=== PATIENT | male | born 1960 | race Caucasian/White ===

== ENCOUNTER 2017-03-02 14:02 | Emergency (ER) | payer SELFPAY ==
[~2017-03-02] VITALS: Ht 174 cm; Wt 121.5 kg
[2017-03-02 14:05] VITALS: TEMP 37; Ht 174 cm; Wt 121.5 kg
[2017-03-02] MEDS ORDERED: GI COCKTAIL PO STA (14:20)
[2017-03-02] MEDS ORDERED: ASPIRIN 81 MG CHEW PO STA (14:20)
[2017-03-02] MEDS ORDERED: LIDOCAINE HCL 2% VISC SOLN 20 ML UDC ONE (14:26)
[2017-03-02] MEDS ORDERED: ALUMINUM/MAGNESIUM SUSP 30 ML UDC ONE (14:27)
[2017-03-02 14:32] VITALS: O2SAT 95
--- NOTE | 2017-03-02 14:32 | EMERGENCY ROOM VISIT NOTE ---
History Report prepared by Madan: Jason San Under the Supervision of: Dr. Evert Diaz M.D. First contact with patient: 14:14 Chief Complaint: CHEST PAIN Stated Complaint: CHEST PAIN Nursing Triage Summary: Pt c/o chest pain at 1130 this am, took tums, mid chest tightness. Denies SOB, diaphoresis, nausea. C/O some diarrhea. History of Present Illness The patient is a 57 year old male who presents to the Emergency Room with complaints of improving centralized chest pain beginning three hours ago. The patient rates his current pain as a 5/10 in severity and describes it as a feeling of "pressure". He states that he was sitting when his pain began. He took Tums for his symptoms, but saw no relief. The patient also complains of diarrhea. He states that he has had a cold recently and has felt slightly short of breath. He has a history of borderline diabetes. The patient's symptoms are not worsened with exertion. He denies diaphoresis, nausea, or vomiting. He notes that he has been very stressed recently. The patient has a history of GERD , but states that his pain was worse than any reflux-associated pain he has had. He is on baby aspirin daily, but states that he often forgets to take it. Source of History: patient Onset: Three hours ago Position: chest (centralized) Symptom Intensity: 5/10 Quality: pressure Timing: other (improving) Associated Symptoms: + SOB, + diarrhea, No diaphoresis, No nausea, No vomiting Review of Systems See HPI for pertinent positives & negatives. A total of 10 systems reviewed and were otherwise negative. Past Medical & Surgical Medical Problems: (1) Borderline diabetes Family History No pertinent family history stated. Social History Smoking Status: Current Every Day Smoker Occupation Status: employed Current/Historical Medications Scheduled Aspirin (Aspirin Chewable), 81 MG PO DAILY Pantoprazole (Protonix), 20 MG PO DAILY Ranitidine (Zantac), 150 MG PO BID Miscellaneous Medications Fish Oil ([place]-3), 1 CAP PO Allergies Coded Allergies: No Known Allergies (Unverified , 03/02/17) Physical Exam Vital Signs Date Time Temp Pulse Resp B/P (MAP) Pulse Ox O2 Delivery O2 Flow Rate FiO2 03/02/17 17:27 77 23 154/87 97 Room Air 03/02/17 16:00 76 24 144/93 95 Room Air 03/02/17 14:32 95 Room Air 03/02/17 14:23 96 03/02/17 14:09 96 Room Air 03/02/17 14:05 37.0 86 18 170/129 97 Nasal Cannula Physical Exam GENERAL: Patient is in no acute distress. HEENT: No acute trauma, normocephalic atraumatic, mucous membranes moist, no nasal congestion, no scleral icterus. NECK: No stridor, no adenopathy, no meningismus, trachea is midline. LUNGS: Clear to auscultation bilaterally, no wheeze, no rhonchi, breath sounds equal. HEART: Without murmurs gallops or rubs, regular rate and rhythm. ABDOMEN: Soft, nontender, bowel sounds positive, no hernias, no peritonitis. EXTREMITIES: No cyanosis or edema, full range of motion of all the joints without pain or difficulty, no signs for acute trauma. NEUROLOGIC: Oriented x 3, no acute motor or sensory deficits, no focal weakness. SKIN: No rash, no jaundice, no diaphoresis. Medical Decision & Procedures ER Provider Diagnostic Interpretation: X-ray results as stated below per interpretation by me and the radiologist: CHEST ONE VIEW PORTABLE FINDINGS: The heart is mildly enlarged. There is no focal pulmonary consolidation. There is no overt failure. There are no pleural effusions. Slight interstitial prominence, is likely accentuated by the patient's large body habitus.[ IMPRESSION: No active disease in the chest. Electronically signed by: Wolf Robins M.D. 03/02/2017 2:50 PM Laboratory Results 03/02/17 14:27 03/02/17 14:27 Test 03/02/17 14:27 03/02/17 16:19 Red Blood Count 4.93 M/uL (4.7-6.1) Mean Corpuscular Volume 89.2 fL (80-100) Mean Corpuscular Hemoglobin 32.0 pg (25-34) Mean Corpuscular Hemoglobin Concent 35.9 g/dl (32-36) RDW Standard Deviation 44.9 fL (36.4-46.3) RDW Coefficient of Variation 13.7 % (11.5-14.5) Mean Platelet Volume 10.9 fL (7.4-10.4) Prothrombin Time 9.6 SECONDS (9.0-12.0) Prothromb Time International Ratio 0.9 (0.9-1.1) Activated Partial Thromboplast Time 26.0 SECONDS (21.0-31.0) Partial Thromboplastin Ratio 1.0 Anion Gap 8.0 mmol/L (3-11) Est Creatinine Clear Calc Drug Dose 124.0 ml/min Estimated GFR () 112.4 Estimated GFR (Non- 97.0 BUN/Creatinine Ratio 21.1 (10-20) Calcium Level 9.2 mg/dl (8.5-10.1) Total Bilirubin 0.3 mg/dl (0.2-1) Aspartate Amino Transf (AST/SGOT) 31 U/L (15-37) Alanine Aminotransferase (ALT/SGPT) 60 U/L (12-78) Alkaline Phosphatase 127 U/L (45-117) Total Protein 8.0 gm/dl (6.4-8.2) Albumin 3.5 gm/dl (3.4-5.0) Globulin 4.5 gm/dl (2.5-4.0) Albumin/Globulin Ratio 0.8 (0.9-2) Lipase 109 U/L (73-393) Troponin I < 0.015 ng/ml (0-0.045) Laboratory results reviewed by me. Medications Administered Medications (Trade) Dose Ordered Sig/Ruby Route Start Time Stop Time Status Last Admin Dose Admin Aspirin (Aspirin Chew) 324 mg NOW STAT PO 03/02/17 14:20 03/02/17 14:23 DC 03/02/17 14:28 324 MG Lidocaine HCl (Viscous Lidocaine 2% Soln) 20 ml STK-MED ONCE .ROUTE 03/02/17 14:26 03/02/17 14:27 DC 03/02/17 14:29 10 ML Al Hydroxide/Mg Hydroxide (Maalox Susp) 30 ml STK-MED ONCE .ROUTE 03/02/17 14:27 03/02/17 14:28 DC 03/02/17 14:29 30 ML Ranitidine HCl (zANTac TAB) 150 mg NOW ONCE PO 03/02/17 15:30 03/02/17 15:31 DC 03/02/17 15:59 150 MG Pantoprazole Sodium (Protonix Tab) 40 mg NOW STAT PO 03/02/17 15:26 03/02/17 15:28 DC 03/02/17 15:59 40 MG ECG Indication: chest pain Rate (beats per minute): 80 Rhythm: normal sinus Findings: no acute ischemic change, no ectopy ED Course 1416: The patient was evaluated in room C7. A complete history and physical exam was performed. 1420: Ordered Aspirin Chew 324 mg PO, GI Cocktail 24 mL PO. 1526: Ordered Protonix Tab 40 mg PO. 1530: I reassessed the patient. He feels much better. Ordered Zantac Tab 150 mg PO. 1720: Reevaluated the patient. Discussed results and discharge instructions: he verbalized understanding and agreement. The patient is ready for discharge. Medical Decision The patient is a 57 year old male who presents to the ED with complaints of chest pain. Differential diagnoses considered include reflux, pneumonia, bronchitis, pancreatitis, gastritis, ulcer, angina, and PA. There is no leukocytosis or concerning anemia. No significant electrolyte abnormality, kidney failure or hepatitis. There is no pancreatitis. No coagulopathy. Chest x-ray does not show pneumonia, mediastinal widening or pneumothorax. EKG shows a normal sinus rhythm, no acute ischemia. Cardiac enzyme testing 2 is not consistent with acute cardiac injury. The patient has a history of reflux. He complained of discomfort in the midchest. He did receive a GI cocktail, he had marked relief with this medication. He was given oral aspirin, oral Protonix and oral Zantac. He is resting comfortably. The patient has a negative cardiac workup. His symptoms have been noted at rest , they have not been exertional. He has minimal cardiac risk factors. I do think reflux is likely his diagnosis. He is being discharged on Zantac and Protonix. If he has any exertional symptoms or worsening symptoms, he will return. Blood pressure here was somewhat elevated, he will follow with his doctor, he is anxious and believes that this is situational hypertension. Medication Reconcilliation Current Medication List: was personally reviewed by me Blood Pressure Screening Patient's blood pressure: Elevated blood pressure Blood pressure disposition: Referred to PCP Impression Primary Impression: Precordial chest pain Scribe Attestation The scribe's documentation has been prepared under my direction and personally reviewed by me in its entirety. I confirm that the note above accurately reflects all work, treatment, procedures, and medical decision making performed by me. Departure Information Dispostion Home / Self-Care Prescriptions Pantoprazole (Protonix) 20 Mg Tab 20 MG PO DAILY, #30 TAB Prov: Evert Diaz M.D. 03/02/17 Ranitidine (Zantac) 150 Mg Tab 150 MG PO BID for 14 Days, #28 TAB Prov: Evert Diaz M.D. 03/02/17 Referrals No Doctor, Assigned (PCP) Forms Call Back Authorization, HOME CARE DOCUMENTATION FORM, IMPORTANT VISIT INFORMATION Patient Instructions My [facility] Additional Instructions zantac 2x per day for 2 weeks protonix daily for 1 month follow with cathi ayon for a recheck this week return for worsening pain or any exertional chest pain or shortness of breath heart testing today was ok, chest film was clear today
--- NOTE | 2017-03-02 14:51 | DIAGNOSTIC IMAGING REPORT ---
CHEST ONE VIEW PORTABLE CLINICAL HISTORY: Atypical chest pain COMPARISON STUDY: No previous studies for comparison. FINDINGS: The heart is mildly enlarged. There is no focal pulmonary consolidation. There is no overt failure. There are no pleural effusions. Slight interstitial prominence, is likely accentuated by the patient's large body habitus.[ IMPRESSION: No active disease in the chest. Electronically signed by: Wolf Robins M.D. 03/02/2017 2:50 PM Dictated Date/Time: 03/02/2017 2:49 PM
[2017-03-02] MEDS ORDERED: OMEG10007 PO (14:52)
[2017-03-02] MEDS ORDERED: ASPCH81X PO (14:52)
[2017-03-02 14:54] LABS: MEAN CELL VOLUME 89.2 fL (80-100); MEAN CORPUSCULAR HGB CONC 35.9 g/dl (32-36); MEAN PLATELET VOLUME 10.9 fL (7.4-10.4); PLATELET COUNT 166 K/uL (130-400); RED BLOOD COUNT 4.93 M/uL (4.7-6.1); WHITE BLOOD COUNT 6.76 K/uL (4.8-10.8)
[2017-03-02 15:12] LABS: ALT/SGPT 60 U/L (12-78); AST/SGOT 31 U/L (15-37); BLOOD UREA NITROGEN 18 mg/dl (7-18); BUN/CREATININE RATIO 21.1 (10-20); CALCIUM 9.2 mg/dl (8.5-10.1); CARBON DIOXIDE 28 mmol/L (21-32); CHLORIDE 100 mmol/L (98-107); CREATININE 0.83 mg/dl (0.60-1.40); GLUCOSE 94 mg/dl (70-99); POTASSIUM 3.9 mmol/L (3.5-5.1); SODIUM 136 mmol/L (136-145)
[2017-03-02 15:17] LABS: ALB/GLOB RATIO 0.8 (0.9-2); ALKALINE PHOSPHATASE 127 U/L (45-117)
[2017-03-02 15:19] LABS: INR 0.9 (0.9-1.1); PROTHROMBIN TIME (PATIENT) 9.6 SECONDS (9.0-12.0)
[2017-03-02] MEDS ORDERED: PANTOprazole SOD 40 MG TAB PO STA (15:26)
[2017-03-02] MEDS ORDERED: RANITIDINE HCL 150 MG TAB PO ONE (15:30)
[2017-03-02] MEDS ORDERED: ZNTT/150 PO (17:18)
[2017-03-02] MEDS ORDERED: PRT/20 PO (17:18)
[2017-03-02 17:27] VITALS: BP 154/87; PULSE 77; O2SAT 97
== END 2017-03-02 17:39 | disposition home or self-care (01) ==
LOC: C.EDB 14:05 → C.EDC 17:39
DX: R07.2 Precordial pain (principal); K21.9 Gastro-esophageal reflux disease without esophagitis; R73.03 Prediabetes; F17.210 Nicotine dependence, cigarettes, uncomplicated; Z79.82 Long term (current) use of aspirin; Z79.899 Other long term (current) drug therapy